=== PATIENT | female | born 1990 | race Caucasian/White ===

== ENCOUNTER 2017-02-28 11:06 | Emergency (ER) | payer OTHER ==
[~2017-02-28] VITALS: Wt 100.0 kg
[2017-02-28] MEDS ORDERED: POLY10DR LEFT EYE (11:29)
[2017-02-28] MEDS ORDERED: SULF1TAB31 PO (11:29)
[2017-02-28] MEDS ORDERED: HYDR-906 PO (11:29)
[2017-02-28] MEDS ORDERED: ERYTOPOI LEFT EYE (11:29)
--- NOTE | 2017-02-28 11:33 | ERD ---
ER Documentation Chief Complaint Date/Time DATE: 02/28/17 TIME: 11:31 Chief Complaint LEFT EYE REDNESS AND ITCHING SINCE YESTERDAY. MILD DRAINAGE THIS AM HPI This 26-year-old female presents emergency room for having redness below her left eye with mild irritation swelling as well as some redness inside the eye. States that she has been rubbing it because it has been uncomfortable for the last couple of days. She has no pain on movements of her eyes. She is aware that she has a stye there. 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 No fevers or chills. No change in vision. ROS All systems reviewed and are negative except as per history of present illness. Medications Home Meds Active Scripts Hydrocodone/Acetaminophen ([place] 5-325 Tablet) 1 Each Tablet, 1 EACH PO Q6, #7 TAB Prov:MOSHEFERMÍN DO 02/28/17 Polymyxin/Trimethoprim* (Polytrim* Eye Drops) 10 Ml Drops, 1 DROP LEFT EYE QID, #1 EA Prov:MOSHEFERMÍN DO 02/28/17 Erythromycin* (Erythromycin* Ophthalmic) 1 Applic Oint, 1 APPLIC LEFT EYE BID, # 1 TUB Prov:MOSHEFERMÍN DO 02/28/17 Sulfamethoxazole/Trimethoprim* (Bactrim Ds* Tablet) 1 Each Tablet, 1 TAB PO BID for 7 Days, TAB Prov:MOSHEFERMÍN DO 02/28/17 Allergies Allergies: Coded Allergies: Penicillins (Verified Allergy, Severe, RASH AND SWELLING, 01/28/16) PMhx/Soc History of Surgery: Yes (GALLBLADDER, ) Anesthesia Reaction: No Hx Neurological Disorder: No Hx Respiratory Disorders: No Hx Cardiac Disorders: No Hx Psychiatric Problems: No Hx Miscellaneous Medical Probl: No Hx Alcohol Use: No Hx Substance Use: No Hx Tobacco Use: No Physical Exam Vitals Vital Signs Date Time Temp Pulse Resp B/P Pulse Ox O2 Delivery O2 Flow Rate FiO2 02/28/17 11:09 98.9 85 21 137/77 98 Physical Exam Const: [] No distress Head: Atraumatic Eyes: Mild conjunctival injection with melinda-limbic sparing the left eye, slight erythema below the left eye. EOMI, PERRLA ENT: Normal External Ears, Nose and Mouth. Procedures/MDM Infraorbital cellulitis with mild conjunctivitis. Very little concern for glaucoma, orbital cellulitis. Going to discharge with Polytrim eyedrops as well as erythromycin for use at night. I am also discharging her with Bactrim for the periorbital cellulitis that she is allergic to penicillins and I will not prescribe Keflex in this case. Having her follow-up with her grocery store associate early next week. Return precautions given. Departure Diagnosis: Primary Impression: Acute conjunctivitis Additional Impression: Periorbital cellulitis of left eye Condition: Stable Patient Instructions: Conjunctivitis, Non-Specific, Melinda-Orbital Cellulitis Additional Instructions: Call your opthomologist for an appointment during the next 2-3 days.See the doctor sooner or return here if your condition worsens before your appointment time. FERMÍN MESA DO February 28, 2017 11:33
[2017-02-28 11:45] VITALS: BP 119/74; PULSE 66; RESP 19; TEMP 98.7
== END 2017-02-28 11:46 | disposition home or self-care (01) ==
LOC: FTE 11:06
DX: H10.32 Unspecified acute conjunctivitis, left eye (principal); H05.012 Cellulitis of left orbit
CPT/HCPCS: 99284